=== PATIENT | male | born 1940 | race Caucasian/White ===

== ENCOUNTER 2023-04-14 12:31 | Emergency (ER) | payer MEDICARE, OTHER ==
[2023-04-14] MEDS ORDERED: Bacitracin Oint 1 GM U/D Packet TOP ONE (13:12)
[2023-04-14 13:19] VITALS: BP 140/66; PULSE 85
== END 2023-04-14 14:37 | disposition home or self-care (01) ==
LOC: JP.ED 12:31
DX: S00.03XA Contusion of scalp, initial encounter (principal); Z79.84 Long term (current) use of oral hypoglycemic drugs; Z79.01 Long term (current) use of anticoagulants; W19.XXXA Unspecified fall, initial encounter
CPT/HCPCS: 70450; 99283

== ENCOUNTER 2023-09-21 15:50 | Emergency (ER) | payer MEDICARE, OTHER ==
[2023-09-21 17:33] LABS: BASOPHILS PERCENT AUTO 0.1 % (0.1-1.3); HEMATOCRIT 27.5 % (38.4-49.7); HEMOGLOBIN 9.2 g/dL (12.9-16.9); IMMATURE GRAN ABSOLUTE AUTO 0.05 K/uL (0.00-0.23); IMMATURE GRAN PERCENT AUTO 0.6 % (0.0-0.7); LYMPHOCYTES ABSOLUTE AUTO 0.69 K/uL (0.8-3.3); LYMPHOCYTES PERCENT AUTO 7.7 % (11.4-47.7); MEAN CORPUSCULAR HEMOGLOBIN 33.1 pg (31.6-35.5); MEAN CORPUSCULAR HGB CONC 33.5 g/dL (31.6-35.5); MEAN CORPUSCULAR VOLUME 98.9 fL (81.4-99.0); MONOCYTES PERCENT AUTO 12.2 % (3.3-12.6); NEUTROPHILS ABSOLUTE AUTO 7.16 K/uL (1.0-7.6); NEUTROPHILS PERCENT AUTO 79.4 % (40.0-78.1); PLATELET COUNT,PLT 123 K/uL (130-375); RED BLOOD CELL COUNT 2.78 M/uL (4.14-5.76)
[2023-09-21 17:34] LABS: BASE EXCESS VENOUS 0.9 mm/L; BICARBONATE,VENOUS 24.5 mmol/L; METHEMOGLOBIN 0.9 %; O2 SATURATION VENOUS 52.5; OXYHEMOGLOBIN 50.5 %; PCO2 VENOUS 36.6 mm/Hg; PH,VENOUS 7.441 (7.350-7.450); TOTAL HEMOGLOBIN 9.6 g/dL (13.5-18.0)
[2023-09-21 17:36] LABS: BASOPHILS ABSOLUTE AUTO 0.01 K/uL (0.00-0.10); PO2 VENOUS 29.7 mm/Hg
[2023-09-21 17:52] LABS: APPEARANCE,URINE CLEAR (CLEAR); BILIRUBIN,URINE NEGATIVE (NEGATIVE); COLOR,URINE YELLOW (YELLOW); GLUCOSE,URINE NEGATIVE (NEGATIVE); KETONES,URINE NEGATIVE (NEGATIVE); LEUKOCYTE ESTERASE,URINE NEGATIVE (NEGATIVE); NITRITE,URINE NEGATIVE (NEGATIVE); OCCULT BLOOD,URINE TRACE-INTACT (NEGATIVE); PROTEIN,URINE NEGATIVE (NEGATIVE); UROBILINOGEN,URINE 0.2 EU/dL (0.2-1.0)
[2023-09-21 17:53] LABS: INR 1.2
[2023-09-21 17:59] LABS: AMORPHOUS SEDIMENT,URINE NOT SEEN; BACTERIA,URINE NOT SEEN; EPITHELIAL CELLS,URINE RARE; MUCUS,URINE NOT SEEN; WBC,URINE 0-5 (0-5)
[2023-09-21 18:03] LABS: A/G RATIO 0.8 (1.2-2.2); ALANINE AMINOTRANSFERASE,ALT 24 U/L (12-78); ALBUMIN 2.8 g/dL (3.4-5.0); ALKALINE PHOSPHATASE 85 U/L (46-116); ASPARTATE AMNIOTRANSFERASE,AST 16 U/L (15-37); BILIRUBIN TOTAL 0.4 mg/dL (0.2-1.0); BLOOD UREA NITROGEN,BUN 33 mg/dL (7-18); CALCIUM 9.2 mg/dL (8.5-10.1); CARBON DIOXIDE,CO2 26 mmol/L (21-32); CHLORIDE,CL 101 mmol/L (100-108); CREATININE 1.4 mg/dL (0.8-1.3); EST CRCL DRUG DOSING (CG) 38.68 mL/min; ESTIMATED GFR 50 mL/min (>60); GLUCOSE RANDOM 112 mg/dL (74-106); POTASSIUM,K 4.4 mmol/L (3.6-5.2); PRO B-TYPE NATRIUR PEPT,BNPPRO 995 pg/mL (5-450); PROTEIN TOTAL,TP 6.4 g/dL (6.4-8.2); SODIUM,NA 136 mmol/L (140-148)
[2023-09-21 18:12] VITALS: BP 138/67; PULSE 73
[2023-09-21 18:17] LABS: CORONAVIRUS COVID-19 NAA NEGATIVE (NEGATIVE); INFLUENZA A NAA NEGATIVE (NEGATIVE); INFLUENZA B NAA NEGATIVE (NEGATIVE); RESPIRATORY SYNCYTIAL VIR NAA NEGATIVE (NEGATIVE)
[2023-09-21 18:18] LABS: ANION GAP 13.4 mmol/L (5.0-14.0)
== END 2023-09-21 19:33 | disposition home or self-care (01) ==
LOC: JP.ED 15:50
DX: I11.0 Hypertensive heart disease with heart failure (principal); I50.9 Heart failure, unspecified; H10.32 Unspecified acute conjunctivitis, left eye; I48.91 Unspecified atrial fibrillation; E78.00 Pure hypercholesterolemia, unspecified; K21.9 Gastro-esophageal reflux disease without esophagitis; E11.9 Type 2 diabetes mellitus without complications; Z79.899 Other long term (current) drug therapy; Z79.01 Long term (current) use of anticoagulants; Z87.891 Personal history of nicotine dependence
CPT/HCPCS: 0241U; 36415; 71046; 80053; 81001; 82803; 83605; 83880; 84145; 85025; 85610; 99285; 99284

== ENCOUNTER 2023-11-16 23:11 | Emergency (ER) | payer MEDICARE, OTHER ==
[2023-11-16 23:48] VITALS: BP 151/81; PULSE 64
[2023-11-17 00:03] LABS: AMORPHOUS SEDIMENT,URINE NOT SEEN; APPEARANCE,URINE TURBID (CLEAR); BACTERIA,URINE FEW; BILIRUBIN,URINE NEGATIVE (NEGATIVE); COLOR,URINE RED (YELLOW); EPITHELIAL CELLS,URINE RARE; GLUCOSE,URINE NEGATIVE (NEGATIVE); KETONES,URINE NEGATIVE (NEGATIVE); LEUKOCYTE ESTERASE,URINE TRACE (NEGATIVE); MUCUS,URINE NOT SEEN; NITRITE,URINE POSITIVE (NEGATIVE); OCCULT BLOOD,URINE LARGE (NEGATIVE); PROTEIN,URINE >=300 mg/dL (NEGATIVE); RBC,URINE >100 (0-5); UROBILINOGEN,URINE 0.2 EU/dL (0.2-1.0)
[2023-11-17 01:03] LABS: BASOPHILS ABSOLUTE AUTO 0.03 K/uL (0.00-0.10); BASOPHILS PERCENT AUTO 0.4 % (0.1-1.3); EOSINOPHILS ABSOLUTE AUTO 0.15 K/uL (0.00-0.40); EOSINOPHILS PERCENT AUTO 1.9 % (0.0-5.4); HEMATOCRIT 29.4 % (38.4-49.7); HEMOGLOBIN 9.9 g/dL (12.9-16.9); IMMATURE GRAN ABSOLUTE AUTO 0.12 K/uL (0.00-0.23); IMMATURE GRAN PERCENT AUTO 1.5 % (0.0-0.7); LYMPHOCYTES ABSOLUTE AUTO 1.07 K/uL (0.8-3.3); LYMPHOCYTES PERCENT AUTO 13.6 % (11.4-47.7); MEAN CORPUSCULAR HEMOGLOBIN 31.7 pg (31.6-35.5); MEAN CORPUSCULAR HGB CONC 33.7 g/dL (31.6-35.5); MEAN CORPUSCULAR VOLUME 94.2 fL (81.4-99.0); MONOCYTES ABSOLUTE AUTO 0.86 K/uL (0.20-0.90); MONOCYTES PERCENT AUTO 10.9 % (3.3-12.6); NEUTROPHILS ABSOLUTE AUTO 5.63 K/uL (1.0-7.6); NEUTROPHILS PERCENT AUTO 71.7 % (40.0-78.1); PLATELET COUNT,PLT 110 K/uL (130-375); RED BLOOD CELL COUNT 3.12 M/uL (4.14-5.76); WHITE BLOOD CELL COUNT,WBC 7.9 K/uL (3.2-11.0)
== END 2023-11-17 02:22 | disposition home or self-care (01) ==
LOC: JP.ED 23:11
DX: N30.01 Acute cystitis with hematuria (principal); I10 Essential (primary) hypertension; E78.00 Pure hypercholesterolemia, unspecified; I48.91 Unspecified atrial fibrillation; K21.9 Gastro-esophageal reflux disease without esophagitis; E11.9 Type 2 diabetes mellitus without complications; E03.9 Hypothyroidism, unspecified; Z87.891 Personal history of nicotine dependence; Z79.899 Other long term (current) drug therapy; Z79.890 Hormone replacement therapy; Z79.01 Long term (current) use of anticoagulants; Z79.84 Long term (current) use of oral hypoglycemic drugs
CPT/HCPCS: 36415; 81001; 85025; 87086; 87088; 87186; 99283

== ENCOUNTER 2024-11-26 00:32 | Emergency (ER) | payer MEDICARE, OTHER ==
[2024-11-26 00:46] VITALS: BP 153/78; PULSE 85
[2024-11-26] MEDS: Silver Nitrate Applicator Each TOP ONE (00:56)
[2024-11-26 01:11] LABS: BASOPHILS PERCENT AUTO 0.3 % (0.1-1.3); EOSINOPHILS ABSOLUTE AUTO 0.71 K/uL (0.00-0.40); EOSINOPHILS PERCENT AUTO 12.0 % (0.0-5.4); IMMATURE GRAN ABSOLUTE AUTO 0.03 K/uL (0.00-0.23); IMMATURE GRAN PERCENT AUTO 0.5 % (0.0-0.7); LYMPHOCYTES ABSOLUTE AUTO 1.72 K/uL (0.8-3.3); LYMPHOCYTES PERCENT AUTO 29.1 % (11.4-47.7); MONOCYTES ABSOLUTE AUTO 0.58 K/uL (0.20-0.90); MONOCYTES PERCENT AUTO 9.8 % (3.3-12.6); NEUTROPHILS ABSOLUTE AUTO 2.86 K/uL (1.0-7.6); NEUTROPHILS PERCENT AUTO 48.3 % (40.0-78.1); PLATELET COUNT,PLT 234 K/uL (130-375); RED BLOOD CELL COUNT 3.33 M/uL (4.14-5.76); WHITE BLOOD CELL COUNT,WBC 5.9 K/uL (3.2-11.0)
[2024-11-26 01:13] LABS: BASOPHILS ABSOLUTE AUTO 0.02 K/uL (0.00-0.10)
== END 2024-11-26 01:29 | disposition home or self-care (01) ==
LOC: JP.ED 00:32
DX: S00.01XA Abrasion of scalp, initial encounter (principal); I10 Essential (primary) hypertension; I48.91 Unspecified atrial fibrillation; E11.9 Type 2 diabetes mellitus without complications; E78.00 Pure hypercholesterolemia, unspecified; Z79.890 Hormone replacement therapy; Z79.899 Other long term (current) drug therapy; Z79.84 Long term (current) use of oral hypoglycemic drugs; Z79.01 Long term (current) use of anticoagulants; X58.XXXA Exposure to other specified factors, initial encounter
CPT/HCPCS: 36415; 85025; 99283